=== PATIENT | male | born 1995 | race African-American/Black ===

== ENCOUNTER 2018-05-01 03:23 | Emergency (ER) | payer BC ==
[~2018-05-01] VITALS: Ht 170.2 cm; Wt 90.7 kg
[~2018-05-01 03:23] MED LIST: ADVAIR HFA115 MCG/21 INH; AZITHROMYCIN 2250 MG PO; PREDNISONE 10 M10 MG PO; PREDNISONE50 MG PO; PROAIR HFA8.5 GM; PROAIR HFA8.5 GM IH; TORADOL 10 MG T10 MG PO
[2018-05-01] MEDS ORDERED: KEFLEX500 M1 PO (03:42)
[2018-05-01] MEDS ORDERED: HURRICAINE ONE1 EACH MUCOUS MEM (03:43)
== END 2018-05-01 03:57 | disposition home or self-care (01) ==
LOC: ER 03:23
DX: J02.0 Streptococcal pharyngitis (principal); J45.909 Unspecified asthma, uncomplicated; Z88.0 Allergy status to penicillin; Z88.5 Allergy status to narcotic agent; Z87.891 Personal history of nicotine dependence